=== PATIENT | male | born 1945 | race Caucasian/White ===

== ENCOUNTER → 2022-02-27 | Outpatient (CLI) | payer OTHER ==
[~2022-02-27] MED LIST: ASPI81TA26 PO; CELE1CAP7 PO; CINN500C15 PO; GLUC1CAP10 PO; GLYB5TAB6 PO; JARD1TAB3 PO; METO50TA7 PO; NESI25TA PO; PRENTAB53 PO
== END ==
LOC: M LABSMTC 09:08
PROVIDERS: ATTEND Anesthesiology
DX: Z11.52 Encounter for screening for COVID-19 (principal); Z20.822 Contact with and (suspected) exposure to COVID-19

== ENCOUNTER 2022-03-04 06:00 | Day surgery (SDC) | payer OTHER ==
[~2022-03-04] VITALS: Ht 172.7 cm; Wt 76.7 kg
[~2022-03-04 06:00] MED LIST changes: +CYCLOPENTOLATE 1% OPHTH SOLN 2 ML BTL OS SCH; +FLURBIPROFEN 0.03% OPHTH SOLN 2.5 ML OS SCH; +PHENYLEPHRINE 2.5% OPHTH SOL 2ML OS SCH
[2022-03-04] MEDS ORDERED: LIDOCAINE 1% SDV 5ML VIAL As Ordered ONE (06:41)
[2022-03-04] MEDS: TETRACAINE 0.5% OPHTH SOLN 4ML OS SCH ×2 (06:43→07:46)
[2022-03-04] MEDS ORDERED: TOBRADEX OPHTH SUSP 2.5 ML As Ordered ONE (06:43)
[2022-03-04] MEDS ORDERED: LR 1,000 ML IV SCH (07:00)
[2022-03-04] MEDS ORDERED: MAXITROL OPHTH SUSP 5 ML As Ordered ONE (07:08)
[2022-03-04] MEDS ORDERED: TRYPAN BLUE 0.06 % 2.25 ML OPHTH SYR (VISIONBLUE) As Ordered ONE (07:20)
[2022-03-04] MEDS ORDERED: fentaNYL 100 MCG/2 ML INJECTION As Ordered ONE (07:53)
[2022-03-04] MEDS ORDERED: MIDAZOLAM INJ 2MG/2ML VIAL (J2250 PER 1MG) As Ordered ONE (07:53)
[2022-03-04 08:16] VITALS: BP 139/69
== END 2022-03-04 08:33 | disposition home or self-care (01) ==
LOC: M SDC 06:00
PROVIDERS: ATTEND Ophthalmology
DX: H25.12 Age-related nuclear cataract, left eye (principal); I10 Essential (primary) hypertension; E11.9 Type 2 diabetes mellitus without complications; Z79.82 Long term (current) use of aspirin; Z79.84 Long term (current) use of oral hypoglycemic drugs; F12.10 Cannabis abuse, uncomplicated
CPT/HCPCS: 66984; J2250; J3010; V2632

== ENCOUNTER → 2022-04-30 | Outpatient (REF) | payer OTHER ==
[~2022-04-30] MED LIST changes: -CYCLOPENTOLATE 1% OPHTH SOLN 2 ML BTL OS SCH; -FLURBIPROFEN 0.03% OPHTH SOLN 2.5 ML OS SCH; -PHENYLEPHRINE 2.5% OPHTH SOL 2ML OS SCH
== END ==
LOC: M LAB REF 16:38
PROVIDERS: ATTEND Ophthalmology
DX: J34.89 Other specified disorders of nose and nasal sinuses (principal); L82.1 Other seborrheic keratosis